=== PATIENT | male | born 1945 | race Caucasian/White ===

== ENCOUNTER 2019-09-04 00:46 | Inpatient (IN) | payer MEDICARE, OTHER, SELFPAY ==
[2019-09-04] VITALS (14 sets, daily range): BP systolic 121–167; BP diastolic 57–78; PULSE 55–82; RESP 14–18; TEMP 36.4–36.8; O2SAT 95–97; BMI 29.2; BMI 29.3
--- NOTE | 2019-09-04 00:51 | PCM.HP.STD ---
Problem List (1) Pneumothorax, left Status: Acute (2) Rib fractures Status: Acute (3) Seizure disorder Status: Chronic (4) Hypertension Status: Chronic (5) Type 2 diabetes mellitus Status: Chronic (6) History of benign brain tumor Status: Chronic (7) Coronary artery disease Status: Chronic (8) Status post coronary artery bypass graft Status: Chronic History of Present Illness Date of Admission: 09/04/19 Chief Complaint: Directly admitted from outside facility for left rib fractures and left pneumothorax. The patient is a 74 year old M with past medical history as mentioned above directly admitted from [facility] for rib fractures and left pneumothorax. The patient is hard of hearing but he was able to provide history. He stated that he was going out of his house down on the steps, he missed the outer door screen and fell on his left side. He started having sharp left-sided chest pain, sharp pain, 10 out of 10 in severity, aggravated by taking deep breath or any movement and associated with mild shortness of breath. He denied cough or sputum production. Denied fever or chills. He denied dizziness, lightheadedness, syncope or presyncope before he fell. At this time, he is afebrile, blood pressure slight elevated, other vital signs are stable. His routine blood work that was done at the outside facility was remarkable for BUN of 28 and creatinine of 1.4. Chest x-ray revealed left eighth, ninth, 10th rib fractures with mild to moderate left pneumothorax. He is being admitted for acute traumatic left eighth, ninth and 10th rib fractures and mild to moderate left pneumothorax. Past Medical History Past Medical History (Chronic Problems): Chronic Problems Seizure disorder (Chronic) Hypertension (Chronic) Type 2 diabetes mellitus (Chronic) History of benign brain tumor (Chronic) Coronary artery disease (Chronic) Status post coronary artery bypass graft (Chronic) Allergies bee venom protein (honey bee) Allergy (Verified 09/04/19 00:28) Swelling cat dander Allergy (Verified 09/04/19 00:28) PT UNSURE OF REACTION strawberry Allergy (Verified 09/04/19 00:28) Hives Home Medications: Ambulatory Orders Medication Instructions Recorded Dilantin 09/04/19 Hctz 09/04/19 Metformin HCl 09/04/19 Vitamin B-12 09/04/19 Surgical History: coronary bypass surgery, - - Resection of benign brain tumor. Psychiatric History: No pertinent psych hx Lives: Spouse/ Significant Other Smoking Status: Former smoker Tobacco Use: Non-smoker Alcohol: None Drugs: None - *Family History Maternal History Items: No pertinent history Paternal History Items: No pertinent history Review of Systems Constitutional: Denies: Anorexia, Chills, Fever, Weakness Eyes: Denies: Blurred vision, Double vision, Drainage, Redness HEENT: Denies: Difficulty Hearing, Ear Pain, Eye Pain, Nasal Congestion, Sore Throat Cardiovascular: Reports: Chest Pain. Denies: Chest Pressure, Chest Tightness, Edema, Heaviness, Palpitations, Paroxysmal Noc. Dyspnea, Syncope Respiratory: Reports: Shortness of Breath. Denies: Cough, Hemoptysis, Pleuritic Pain, Sputum production, Wheezing Gastrointestinal: Denies: Abdominal Pain, Constipation, Diarrhea, Nausea, Vomiting Genitourinary: Denies: Dysuria, Frequency, Hematuria Musculoskeletal: Denies: Arm Pain, Back Pain, Foot Pain Skin: Denies: Dryness, Rash Neurological: Denies: Balance problems, Blurred vision, Change in Speech, Slurred speech, Confusion, Headaches, Incoordination Psychiatric: Denies: Anxiety, Depression Endocrine: Denies: Change in Body Habitus, Polydipsia, Polyuria VTE Information - Inpt Only VTE Present on Admission: No VTE Mechan Device Prophylaxis: SCD's VTE Pharm Prophylaxis ordered?: No Patient Problems: Active and Suspected Problems Pneumothorax, left (Acute) Rib fractures (Acute) - Physical Exam Vitals/I&O's: Vital Signs Temp Pulse Resp BP Pulse Ox 97.6 F L 61 18 167/72 H 96 09/04/19 00:15 09/04/19 00:15 09/04/19 00:15 09/04/19 00:15 09/04/19 00:15 Oxygen Delivery Method Room Air Weight: 175 lb 14.862 oz Body Mass Index (BMI) 29.2 General: Alert, Oriented x3, Cooperative HEENT: Atraumatic, PERRLA, EOMI, Normocephalic Oral: Moist Mucosa, No Gingival or Mucosal Lesions/ Ulcerations Neck: Supple, No JVD, Negative Carotid Bruits, Trachea Midline, Thyroid Normal Size and Texture Lungs: Clear to auscultation, Normal air movement, No rhonchi, No wheeze, No rales, Diminished Cardiovascular: Regular rate, Regular Rhythm, Normal S1, Normal S2, PMI Normal Abdomen: Bowel Sounds Present, Soft, Non Tender, Non-Distended, No Hepato-splenomegaly Extremities: No clubbing, No cyanosis, No edema Skin: No rashes, No breakdown Lymphatic: No Cervical, Supraclavicular, or Inguinal Adenopathy Neurological: Cranial nerves II-XII grossly intact, Motor Exam 5/5 strength throughout Psych/Mental Status: Normal Affect, Appropriate, Alert and oriented to time, place, person, mood and affect CBC: WBC is 11.3, hemoglobin 13.4, platelet count 266,000. BMP: Glucose 99, sodium 138, potassium 4.7, chloride 102, BUN 28, creatinine is 1.4. Chest x-ray reviewed, left eighth, ninth and 10th rib fractures and to me, pneumothorax is not obvious. Clinical Impression(s) from Imaging Studies Chest X-Ray 09/04/19 01:05 IMPRESSION: Small left pneumothorax. Mild bilateral basilar atelectasis. No visualized pulmonary infiltrate. Electronically Signed: Ap Moscoso MD at 2:15 EDT , Service support , ADDENDUM: 09/04/19225 IMPRESSION: Small left pneumothorax. Mild bilateral basilar atelectasis. No visualized pulmonary infiltrate. N.B. : The above information has been verbally conveyed by Ap Moscoso MD to Ashley Otero RN, on 09/04/2019 02:19:02 (ET). Electronically Signed: Ap Moscoso MD at 2:15 EDT , Service support , Current Medications Sodium Chloride () 250 mls @ 15 mls/hr IV .[id number] PRN PRN Reason: Saline Flush Sodium Chloride () 250 mls @ 15 mls/hr IV .[id number] PRN PRN Reason: Additional IVPB Infusion Sodium Chloride () 10 - 40 ml IV UD PRN PRN Reason: SALINE FLUSH Assessment/Plan All Active Problems Pneumothorax, left (Acute) Rib fractures (Acute) This is a 74 years old male patient was directly admitted from outside facility for acute traumatic left eighth, ninth and 10th rib fractures with mild to moderate pneumothorax. #1 left [id number] pneumothorax: Repeat chest x-ray done and revealed 20% left pneumothorax. Patient's vital signs and respiratory status stable. Pulse ox is maintained on room air. EKG revealed normal sinus rhythm, no acute skin changes. Admit to PCU, cardiac monitoring, gentle IV fluids for hydration, IV morphine PRN for pain, OxyIR PRN, CBC and BMP this morning, general surgery consult, Tylenol PRN, PT OT evaluation and treatment. #2 acute traumatic left eighth, ninth and 10th rib fractures: Plan as above, pain control, IV morphine PRN, OxyIR PRN, Lidoderm patch topically, incentive spirometer. #3 CAD status post CABG: Stable, no acute issues. EKG reviewed, was unremarkable. Plan to continue home medications when home medication list updated. #4 renal sufficiency: It is unclear if this is acute or chronic. Admission BUN is 28, creatinine 1.4. Plan: Gentle IV fluids for hydration, input output chart, repeat BMP this morning. #5 type 2 diabetes mellitus: ADA diet, Accu-Cheks, insulin sliding scale. Continue metformin. #6 hypertension: Blood pressure slightly elevated, continue home medications when home medication list updated, IV hydralazine PRN. #7 seizure disorder: Continue with Dilantin when home medication list updated. #8 history of benign brain tumor: Status post resection, stable. #9 DVT prophylaxis: SCDs. No chemical prophylaxis. This note was generated with [employer] dictation software. It may contain incorrect words, spelling, and punctuation that were not noted in checking the note before signing. Inpatient E&M: 83516 Init Hosp L3
--- NOTE | 2019-09-04 00:53 | NURSING ---
Pt reports he hasn't had a PNA shot. States last flu shot was about a year ago.
--- NOTE | 2019-09-04 00:55 | EKG12_ITS ---
Test Reason : NEW PT ADMIT Blood Pressure : / mmHG Vent. Rate : 060 BPM Atrial Rate : 060 BPM P-R Int : 128 ms QRS Dur : 116 ms QT Int : 452 ms P-R-T Axes : -26 -75 074 degrees QTc Int : 452 ms Normal sinus rhythm Left axis deviation Nonspecific ST and T wave abnormality Abnormal ECG No previous ECGs available Confirmed by HOLLEY MIKE, CALEB ([id number]), video effects editor TABBY OLSON ([id number]) on 09/05/2019 1:58:06 PM Referred By: DR HODGES Confirmed By:CALEB BABB MD
--- NOTE | 2019-09-04 01:05 | RAD_ITS ---
We are attempting to reach an attending provider to discuss findings. An addendum with communication details will be sent when the communication is complete. STUDY: X-RAY CHEST REASON FOR EXAM: Male, 74 years old. Fall today. Left rib fractures. questionable pneumothorax. TECHNIQUE: Frontal and lateral views of the chest. COMPARISON: None. FINDINGS: There is a small left pneumothorax, probably filling about 20% of the left hemithorax. There is up to 2.5 cm separation of visceral and parietal pleura in the left apical region. There is mild bilateral basilar atelectasis. There is no demonstrated pulmonary infiltrate. There is no demonstrated pleural effusion.. Normal size heart. There are sternotomy wires. Normal mediastinum and neal. Normal visualized pulmonary arteries. There is atherosclerotic calcification of the aortic arch with tortuosity. There are multilevel degenerative changes of thoracic spine.. There is no visualized rib fracture on the views provided.. There is an irregular but well circumscribed sclerotic density in the left humeral neck which may represent an old bone infarction or benign enchondroma.. There is no demonstrated abnormality of the visualized soft tissue structures of the upper abdomen. RAD/Chest PA and Lateral IMPRESSION: Small left pneumothorax. Mild bilateral basilar atelectasis. No visualized pulmonary infiltrate. Electronically Signed: Ap Moscoso MD at 2:15 EDT , Service support ,
[2019-09-04] MEDS: 0.9% Normal Saline 1,000 ML 75 ML IV (01:42)
[2019-09-04] MEDS: 0.9% Saline Lock 10 ML Syringe IV (01:42)
--- NOTE | 2019-09-04 04:50 | NURSING ---
Addendum entered by Ashley Otero 09/04/19 06:36: Pt denies thoughts of suicide. Original Note: This RN communicated to pt that the plan is for a chest tube. Pt states, I feel like I just want to give up.
[2019-09-04] MEDS: oxyCODONE 5 MG Tablet PO (04:56)
--- NOTE | 2019-09-04 04:58 | NURSING ---
Pt would like his sister Valeria and his girlfriend Darcy updated with plan for pt this AM. Valeria Gerber [phone]. Darcy Santo [phone].
--- NOTE | 2019-09-04 05:07 | EKG12_ITS ---
Test Reason : CP Blood Pressure : / mmHG Vent. Rate : 052 BPM Atrial Rate : 052 BPM P-R Int : 126 ms QRS Dur : 118 ms QT Int : 444 ms P-R-T Axes : -28 -76 023 degrees QTc Int : 412 ms Sinus bradycardia with sinus arrhythmia Left axis deviation ST & T wave abnormality, consider anterior ischemia Abnormal ECG When compared with ECG of 04-SEP-2019 02:00, MANUAL COMPARISON REQUIRED, DATA IS UNCONFIRMED Confirmed by HOLLEY MIKE, CALEB ([id number]), research editor TABBY OLSON ([id number]) on 09/05/2019 1:48:51 PM Referred By: DR HODGES Confirmed By:CALEB BABB MD
[2019-09-04 06:08] LABS: Absolute Lymphocyte Count 2.09 X10^3/uL (0.83-4.51); Absolute Neutrophil Count 4.1 X10^3/uL (2.0-7.7); Basophil# 0.05 X10^3/uL; Basophil% 0.7 % (0-1); Eosinophil# 0.34 X10^3/uL; Eosinophils% 4.7 % (0-5); Hematocrit 39.9 % (40-54); Hemoglobin 12.8 g/dL (13.0-16.5); Lymphocyte # 2.09 X10^3/ul (4.0); Lymphocyte % 28.9 % (19-41); Mean Corp Hgb Conc 32.1 g/dL (32-36); Mean Corpuscular Hgb 30.8 pg (27.0-32.0); Mean Corpuscular Volume 96.1 fL (80-94); Monocyte# 0.66 X10^3/uL; Monocyte% 9.1 % (0-10); NRBC Flagged by Analyzer 0 % (0-5); Neutrophil # 4.07 X10^3/uL (2.7-7.7); Neutrophil % 56.2 % (47-70); Platelet Count 239 K/mm3 (150-450); RBC Distribution Width SD 45.9 fl (35.1-43.9); Red Blood Count 4.15 M/mm3 (4.6-6.2); White Blood Count 7.2 K/mm3 (4.4-11.0)
[2019-09-04 06:25] LABS: Prothrombin Time (Protime)PT. 12.7 SECONDS (11.7-14.9)
[2019-09-04 06:29] LABS: Anion Gap 5 (5-15); BUN 22 mg/dL (7-18); BUN/Creat Ratio 19.3 RATIO (10-20); Calcium,Total 9.2 mg/dL (8.5-10.1); Chloride 108 mmol/L (98-107); Creatinine, Serum 1.14 mg/dL (0.70-1.30); EST Glomerular Filtration Rate 67 mL/min (>60); Est Glom Filt Rate - Afr Amer 81 mL/min (>60); Estimated Creatinine Clearance 50.95 ml/min; Glucose 122 mg/dL (74-106); Potassium 4.6 mmol/L (3.5-5.1); Sodium Level 140 mmol/L (136-145)
--- NOTE | 2019-09-04 07:18 | RAD_ITS ---
STUDY: X-RAY CHEST REASON FOR EXAM: Male, 74 years old. pneumothorax -- fell yesterday with left sided rib fractures and small left pneumothorax seen on previous CXR TECHNIQUE: PA and lateral views of the chest. COMPARISON: Yesterday FINDINGS: EKG leads project over the chest. Decreased amount of atelectasis in the left lung base. Left apical pneumothorax has slightly decreased measuring approximately 15% in volume with pleural separation measuring approximately 2.1 cm at the left apex. Tiny amount of lucency in the left costophrenic angle is likely related to pneumothorax, stable. Normal size heart. Sternal wires and mediastinal surgical clips compatible with prior CABG. Normal visualized pulmonary arteries. There is atherosclerotic calcification of the aortic arch with tortuosity. There are diffuse degenerative changes of the visualized thoracic spine. Oval-shaped chondroid lesion of the left humeral neck compatible with benign entities such as enchondroma or bone infarct. There is no demonstrated abnormality of the visualized soft tissue structures of the upper abdomen. RAD/Chest PA and Lateral IMPRESSION: 1. Favorable change. Persistent but decreased left pneumothorax. Electronically Signed: Nimesh Knott MD ([place]) at 8:08 EDT , Service support ,
--- NOTE | 2019-09-04 08:39 | PN_ITS ---
Progress Note Patient is a 74-year-old gentleman transferred from [facility] after presenting with an accidental mechanical fall. Chest x-ray obtained demonstrated multiple rib fractures and a 20% pneumothorax. To monitored bed repeat chest x-ray this a.m. demonstrated reduction in his pneumothorax down to 15% 1. Acute mechanical fall with resultant left-sided pneumothorax and multiple rib fractures 2. Coronary artery disease status post CABG 3. Acute kidney injury 4. Diabetes mellitus type 2 5. Essential hypertension 6. Seizure disorder 7. History of brain tumor status post resection Seen and examined his initial assessment including history and physical, diagnostic data, consultation note and management orders reviewed will follow. STROKE Vital Signs/Narrative: Vital Signs Temp Pulse Resp BP Pulse Ox 09/04/19 04:51 97.9 F 57 L 18 152/57 H 97
[2019-09-04] MEDS: Glucerna Shake 120 ML LIQUID PO ×2 (08:48→17:09)
[2019-09-04] MEDS: Lidocaine 5% Patch 1 PATCH TOPICAL (08:49)
--- NOTE | 2019-09-04 09:07 | CON.PCM_ITS ---
Reason for Consult Date of Consultation: 09/04/19 History of Present Illness: The patient is a 74 year old M presented to the ER due to left-sided chest pain after a fall. Patient states he fell from his trailer as he was hanging onto the screen door but the wind came up and took the door and he fell back on the concrete. Patient denies any loss of consciousness or hitting his head, denies any abdominal pain just complains of some left-sided chest pain. Patient went to [facility] reviews showed multiple rib fractures. Additional chest x-ray here showed maybe a 20% pneumothorax patient has been on room air 97% and denies any shortness of breath. Repeat chest x-ray was done this morning which shows improvement of the pneumothorax may be about 15%. Patient would prefer to avoid a chest tube if possible. Past Medical History Past Medical History (Chronic Problems): Chronic Problems Seizure disorder (Chronic) Hypertension (Chronic) Type 2 diabetes mellitus (Chronic) History of benign brain tumor (Chronic) Coronary artery disease (Chronic) Status post coronary artery bypass graft (Chronic) Allergies bee venom protein (honey bee) Allergy (Verified 09/04/19 00:28) Swelling cat dander Allergy (Verified 09/04/19 00:28) PT UNSURE OF REACTION strawberry Allergy (Verified 09/04/19 00:28) Hives Home Medications: Ambulatory Orders Medication Instructions Recorded Dilantin 09/04/19 Hctz 09/04/19 Metformin HCl 09/04/19 Vitamin B-12 09/04/19 Surgical History: coronary bypass surgery, - - Resection of benign brain tumor., Bilateral inguinal hernia repairs with mesh, right finger amputation during the war in [place] Psychiatric History: No pertinent psych hx Lives: Spouse/ Significant Other Smoking Status: Former smoker Tobacco Use: Non-smoker Alcohol: None Drugs: None - *Family History Maternal History Items: No pertinent history Paternal History Items: No pertinent history Review of Systems Constitutional: Denies: Anorexia Eyes: Reports: - - Patient states 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 Denies: Difficulty Swallowing Cardiovascular: Reports: - - Left-sided rib pain Respiratory: Denies: Shortness of Breath Gastrointestinal: Denies: Abdominal Pain, Nausea, Vomiting Genitourinary: Denies: Dysuria Psychiatric: Denies: Anxiety, Depression Hematologic/ Lymphatic: Denies: Easy Bruising, Easy Bleeding Patient Problems: Active and Suspected Problems Pneumothorax, left (Acute) Rib fractures (Acute) - Physical Exam Vitals/I&O's: Vital Signs Temp Pulse Resp BP Pulse Ox 97.9 F 57 L 18 152/57 H 97 09/04/19 04:51 09/04/19 04:51 09/04/19 04:51 09/04/19 04:51 09/04/19 04:51 Oxygen Delivery Method Room Air Weight: 175 lb 14.862 oz Body Mass Index (BMI) 29.2 Intake and Output for Last 24 Hours 09/02/19 09/03/19 09/04/19 23:59 23:59 23:59 Intake Total 160 / 160 Output Total 1075 / 1075 Balance -915 / -915 General: Alert, Oriented x3, Cooperative, No apparent distress HEENT: Atraumatic Lungs: Clear to auscultation, - - Tender to palpation on the left lateral chest, nontender over sternum, no crepitus on exam Cardiovascular: Regular rate Abdomen: Soft, Non Tender, Non-Distended Extremities: No clubbing, No cyanosis, No edema Neurological: Cranial nerves II-XII grossly intact Psych/Mental Status: Normal Affect Laboratory Results 09/04/19 05:52: WBC 7.2, RBC 4.15 L, Hgb 12.8 L, Hct 39.9 L, MCV 96.1 H, MCH 30.8, MCHC 32.1, RDW Std Deviation 45.9 H, RDW Coeff of [place] 13.0, Plt Count 239, MPV 9.0, Immature Gran % (Auto) 0.400, Neut % (Auto) 56.2, Lymph % (Auto) 28.9, [place] % (Auto) 9.1, Eos % (Auto) 4.7, Baso % (Auto) 0.7, Absolute Neuts (auto) 4.1, Absolute Lymphs (auto) 2.09, Nucleated RBC % 0 09/04/19 05:52: PT 12.7, INR 1.0 09/04/19 05:52: Sodium 140, Potassium 4.6, Chloride 108 H, Carbon Dioxide 27.0, Anion Gap 5, BUN 22 H, Creatinine 1.14, Estim Creat Clear Calc 50.95, Est GFR (MDRD) Af Amer 81, Est GFR (MDRD) Non-Af 67, BUN/Creatinine Ratio 19.3, Glucose 122 H, Calcium 9.2 09/04/19 05:52: Troponin I < 0.015 Current Medications Acetaminophen (Tylenol) 650 mg PO Q6H PRN PRN PRN Reason: Pain Score 1-10/Temp > 100.7 F Dextrose (D50w Syringe) 0 gm IV X1 PRN; Protocol PRN Reason: Hypoglycemia Glucagon () 1 mg IM .X1 PRN PRN Reason: Hypoglycemia Hydralazine HCl (Apresoline Iv) 10 mg IV Q8H PRN PRN PRN Reason: for SBP>160 Sodium Chloride () 250 mls @ 15 mls/hr IV .[id number] PRN PRN Reason: Saline Flush Sodium Chloride () 250 mls @ 15 mls/hr IV .[id number] PRN PRN Reason: Additional IVPB Infusion Sodium Chloride () 1,000 mls @ 75 mls/hr IV .[id number] [facility] Stop: 09/04/19 14:14 Last Admin: 09/04/19 01:42 Dose: 75 mls/hr Documented by: Lidocaine (Lidoderm Patch) 1 patch TOPICAL DAILY [facility]; Protocol Last Admin: 09/04/19 08:49 Dose: 1 patch Documented by: Morphine Sulfate () 2 mg IV Q3H PRN PRN PRN Reason: Pain Score 6-10/10 Nutritional Formula (Lactose Free) (Glucerna Shake) 120 ml PO TIDCM [facility] Last Admin: 09/04/19 08:48 Dose: 120 ml Documented by: Ondansetron HCl (Zofran) 4 mg IV Q8H PRN PRN PRN Reason: NAUSEA/VOMITING Oxycodone HCl (Oxyir) 5 mg PO Q4H PRN PRN PRN Reason: Pain Score 4-5/10 Last Admin: 09/04/19 04:56 Dose: 5 mg Documented by: Senna/Docusate Sodium (Senokot-S, Joslyn-Colace) 2 tablet PO BID PRN PRN PRN Reason: Constipation Sodium Chloride () 10 - 40 ml IV UD PRN PRN Reason: SALINE FLUSH Last Admin: 09/04/19 01:42 Dose: 10 ml Documented by: Zolpidem Tartrate (Ambien (Generic)) 5 mg PO QHS PRN PRN PRN Reason: INSOMNIA Assessment/Plan All Active Problems Pneumothorax, left (Acute) Rib fractures (Acute) 74-year-old male status post fall, multiple left rib fractures, small pneumothorax on the left 1. Patient's chest x-ray this morning does show decrease in size of the pneumothorax about 15% patient has been on room air denying any shortness of breath while he has been in the hospital at 97%. Plan to continue to monitor closely patient is aware that if he has any breathing difficulties or his chest x-ray shows increasing pneumothorax with plan to place a chest tube at bedside. Patient would like to avoid a chest tube if possible. We will continue to monitor. Margret Morales M.D. Pager: [phone] [facility] [address] [place] [address], [facility], [address] [place] [address] Office: [phone] Inpatient E&M: 11868 Init Hosp L2
--- NOTE | 2019-09-04 11:17 | NURSING ---
1115 ATTEMPTED TO CALL [facility] PHONE NUMBER LISTED IN CHART IS OUT OF SERVICE
[2019-09-04 11:35] LABS: Bedside Glucose 109 mg/dL (70-110)
[2019-09-04 11:51] LABS: Bedside Glucose 114 mg/dL (70-110)
--- NOTE | 2019-09-04 12:49 | CASEMGMT ---
FABIO SOLANO assessment: Face to Face with patient for initial transition planning/care coordination assessment. FABIO SOLANO introduced self and role at [facility], pt voices understanding and consents to assessment at this time. Pt is hard of hearing. Pt is A/Ox4 at this time and answers all questions appropriately at this time. Pt is sitting up in chair in no distress at this time. Care providers, pharmacy, and demographics verified/updated at this time. Presentation: Direct admit from [facility] for multiple rib fx's and small pneumo s/p fall Admitting dx: // rib fx's left PCP: [facility] Specialists: [facility] in [place] Preferred Pharmacy: [place] Insurance: [facility] Pres[facility] Benefit: [facility] Living Will/HPOA: Pt states does not have LW/HPOA and declines AD info at this time. Pt states that he is working on this on his own. LNOK: Darcy Santo, girlfriend Living Arrangements: Pt states lives alone in mobile home and states no concerns at home at this time. Pt states his sig other lives 'three trailers down and she helps me with whatever I need.' Pt states is mostly independent with ADL's. Transportation: Pt states drives self and states no transportation concerns at this time. DME/HHC: Pt states [facility] and states no need for any further DME at this time. Pt states no hx of HHC or SNF in the past. Pt states no concerns with going home at time of discharge. Pt is retired. Pt states does not smoke or drink ETOH. Pt states no further concerns/needs at this time. CM to follow for any further discharge planning/needs. Advised pt to ask for CM if any further questions/concerns/needs arise, voices understanding. Pt Goal: Home Plan[place] FABIO SOLANO
[2019-09-04] MEDS: Cilostazol 50 MG Tablet 100 MG PO (17:10)
[2019-09-04] MEDS: metFORMIN HCl 1,000 MG Tablet 1000 MG PO (17:10)
[2019-09-04] MEDS: Phenytoin Na 100 MG Capsule PO (17:11)
[2019-09-04 17:25] LABS: Bedside Glucose 89 mg/dL (70-110)
[2019-09-04] MEDS: Atorvastatin Calcium 20 MG Tablet PO (21:18)
[2019-09-04] MEDS: Doxazosin 4 MG Tablet PO (21:18)
[2019-09-04] MEDS: Lisinopril 40 MG Tablet PO (21:18)
[2019-09-04] MEDS: Zolpidem Tartrate 5 MG Tablet PO (21:21)
[2019-09-04 21:30] LABS: Bedside Glucose 90 mg/dL (70-110)
[2019-09-05 02:06] VITALS: BP 157/73; PULSE 82; RESP 18; TEMP 36.5; O2SAT 94
[2019-09-05 03:17] VITALS: PULSE 67
--- NOTE | 2019-09-05 05:55 | RAD_ITS ---
STUDY: X-RAY CHEST REASON FOR EXAM: Male, 74 years old. PNEUMOTHORAX, RIB FXS TECHNIQUE: PA and lateral views of the chest. COMPARISON: Comparison is made with prior study dated September 04, 2019. FINDINGS: EKG electrodes are seen. Stable small left apical pneumothorax. Mild degree of bibasilar atelectasis slightly more prominent on the right side. This has progressed as compared to prior study. Sternal cerclage wires and vascular clips are present from a prior sternotomy and coronary artery bypass graft procedure (CABG). Normal mediastinum and neal. Normal visualized pulmonary arteries. There is atherosclerotic calcification of the aortic arch with tortuosity. There are degenerative changes of the visualized thoracic spine. Normal visualized ribs, clavicles, and shoulders. There is no demonstrated abnormality of the visualized soft tissue structures of the upper abdomen. RAD/Chest PA and Lateral IMPRESSION: Stable small left apical pneumothorax with a mild degree of bibasilar atelectasis. Electronically Signed: Saleem Richards, at 10:25 EDT , Service support ,
[2019-09-05] MEDS: Cilostazol 50 MG Tablet 100 MG PO (06:40)
[2019-09-05 06:50] LABS: Bedside Glucose 137 mg/dL (70-110)
[2019-09-05 07:36] VITALS: PULSE 87
[2019-09-05 07:45] VITALS: O2SAT 95
[2019-09-05 07:57] LABS: Hematocrit 40.6 % (40-54); Hemoglobin 13.3 g/dL (13.0-16.5); Mean Corp Hgb Conc 32.8 g/dL (32-36); Mean Corpuscular Volume 94.6 fL (80-94); Mean Platelet Vol. 8.9 fl (6.2-12.0); Platelet Count 242 K/mm3 (150-450); RBC Distribution Width CV 13.1 % (11.6-14.6); RBC Distribution Width SD 44.8 fl (35.1-43.9); Red Blood Count 4.29 M/mm3 (4.6-6.2); White Blood Count 6.1 K/mm3 (4.4-11.0)
[2019-09-05] MEDS: oxyCODONE 5 MG Tablet PO (08:04)
[2019-09-05 08:05] VITALS: BP 150/64; PULSE 88; RESP 16; TEMP 36.7; O2SAT 98
[2019-09-05] MEDS: Aspirin 325 MG Tablet PO (08:05)
[2019-09-05 08:06] LABS: Anion Gap 10 (5-15); BUN 21 mg/dL (7-18); BUN/Creat Ratio 19.8 RATIO (10-20); Calcium,Total 9.3 mg/dL (8.5-10.1); Chloride 104 mmol/L (98-107); Creatinine, Serum 1.06 mg/dL (0.70-1.30); EST Glomerular Filtration Rate 73 mL/min (>60); Est Glom Filt Rate - Afr Amer 88 mL/min (>60); Glucose 141 mg/dL (74-106); Magnesium 1.8 mg/dL (1.6-2.6); Potassium 3.9 mmol/L (3.5-5.1); Sodium Level 140 mmol/L (136-145)
[2019-09-05] MEDS: Cyanocobalamin 500 MCG Tablet 1000 MCG PO (08:06)
[2019-09-05] MEDS: metFORMIN HCl 1,000 MG Tablet 1000 MG PO (08:06)
[2019-09-05] MEDS: Phenytoin Na 100 MG Capsule PO (08:06)
[2019-09-05] MEDS: hydroCHLOROthiazide 25 MG Tablet 50 MG PO (08:07)
[2019-09-05] MEDS: Doxazosin 4 MG Tablet PO (08:07)
[2019-09-05] MEDS: Atenolol 100 MG Tablet PO (08:07)
[2019-09-05] MEDS: Lidocaine 5% Patch 1 PATCH TOPICAL (08:08)
[2019-09-05] MEDS: Lisinopril 40 MG Tablet PO (08:08)
--- NOTE | 2019-09-05 11:42 | PN.SURG_ITS ---
Patient Problems: Active and Suspected Problems Pneumothorax, left (Acute) Rib fractures (Acute) Subjective: Patient denies any shortness of breath, and 94% on room air, chest x-ray shows stable left apical pneumothorax could be may be a little improved difficult to see behind the rib. - Physical Exam Vitals/I&O's: Vital Signs Temp Pulse Resp BP Pulse Ox 98.0 F 88 16 150/64 H 98 09/05/19 08:05 09/05/19 08:05 09/05/19 08:05 09/05/19 08:05 09/05/19 08:05 Oxygen Delivery Method Room Air Weight: 175 lb 14.862 oz Body Mass Index (BMI) 29.2 Intake and Output for Last 24 Hours 09/03/19 09/04/19 09/05/19 23:59 23:59 23:59 Intake Total 1840 / 1840 Output Total 2099 / 2099 Balance -260 / -260 General: Alert, Oriented x3, Cooperative, No apparent distress HEENT: Atraumatic Lungs: Clear to auscultation Cardiovascular: Regular rate Abdomen: Soft, Non Tender, Non-Distended, - - Tender left lower chest Extremities: No clubbing, No cyanosis, No edema Laboratory Results 09/04/19 11:47: POC Glucose 114 H 09/04/19 17:08: POC Glucose 89 09/04/19 21:24: POC Glucose 90 09/05/19 06:44: POC Glucose 137 H 09/05/19 07:45: WBC 6.1, RBC 4.29 L, Hgb 13.3, Hct 40.6, MCV 94.6 H, MCH 31.0, MCHC 32.8, RDW Std Deviation 44.8 H, RDW Coeff of Rosa Maria 13.1, Plt Count 242, MPV 8.9 09/05/19 07:45: Sodium 140, Potassium 3.9, Chloride 104, Carbon Dioxide 26.0, A nion Gap 10, BUN 21 H, Creatinine 1.06, Estim Creat Clear Calc 54.80, Est GFR (MDRD) Af Amer 88, Est GFR (MDRD) Non-Af 73, BUN/Creatinine Ratio 19.8, Glucose 141 H, Calcium 9.3, Magnesium 1.8 Current Medications Acetaminophen (Tylenol) 650 mg PO Q6H PRN PRN PRN Reason: Pain Score 1-10/Temp > 100.7 F Aspirin (Aspirin) 325 mg PO DAILY@0800 [facility] Last Admin: 09/05/19 08:05 Dose: 325 mg Documented by: Atenolol (Tenormin (Beta Gómez)) 100 mg PO DAILY [facility] Last Admin: 09/05/19 08:07 Dose: 100 mg Documented by: Atorvastatin Calcium (Lipitor) 20 mg PO QHS [facility] Last Admin: 09/04/19 21:18 Dose: 20 mg Documented by: Cilostazol (Pletal) 100 mg PO BIDAC [facility] Last Admin: 09/05/19 06:40 Dose: 100 mg Documented by: Cyanocobalamin (Vitamin B12) 1,000 mcg PO DAILYCM [facility] Last Admin: 09/05/19 08:06 Dose: 1,000 mcg Documented by: Dextrose (D50w Syringe) 0 gm IV X1 PRN; Protocol PRN Reason: Hypoglycemia Doxazosin Mesylate (Cardura) 4 mg PO BID [facility] Last Admin: 09/05/19 08:07 Dose: 4 mg Documented by: Glucagon () 1 mg IM .X1 PRN PRN Reason: Hypoglycemia Hydralazine HCl (Apresoline Iv) 10 mg IV Q8H PRN PRN PRN Reason: for SBP>160 Hydrochlorothiazide (Hctz) 50 mg PO DAILY [facility] Last Admin: 09/05/19 08:07 Dose: 50 mg Documented by: Sodium Chloride () 250 mls @ 15 mls/hr IV .[id number] PRN PRN Reason: Saline Flush Sodium Chloride () 250 mls @ 15 mls/hr IV .[id number] PRN PRN Reason: Additional IVPB Infusion Lidocaine (Lidoderm Patch) 1 patch TOPICAL DAILY [facility]; Protocol Last Admin: 09/05/19 08:08 Dose: 1 patch Documented by: Lisinopril (Zestril) 40 mg PO BID [facility] Last Admin: 09/05/19 08:08 Dose: 40 mg Documented by: Metformin HCl (Glucophage) 1,000 mg PO BIDCM [facility] Last Admin: 09/05/19 08:06 Dose: 1,000 mg Documented by: Morphine Sulfate () 2 mg IV Q3H PRN PRN PRN Reason: Pain Score 6-10/10 Naproxen (Naprosyn) 500 mg PO BID PRN PRN Reason: Pain Score 1-10/10 Nutritional Formula (Lactose Free) (Glucerna Shake) 120 ml PO TIDCM [facility] Last Admin: 09/05/19 08:05 Dose: Not Given Documented by: Ondansetron HCl (Zofran) 4 mg IV Q8H PRN PRN PRN Reason: NAUSEA/VOMITING Oxycodone HCl (Oxyir) 5 mg PO Q4H PRN PRN PRN Reason: Pain Score 4-5/10 Last Admin: 09/05/19 08:04 Dose: 5 mg Documented by: Phenytoin Sodium (Dilantin) 100 mg PO BIDCM [facility] Last Admin: 09/05/19 08:06 Dose: 100 mg Documented by: Senna/Docusate Sodium (Senokot-S, Joslyn-Colace) 2 tablet PO BID PRN PRN PRN Reason: Constipation Sodium Chloride () 10 - 40 ml IV UD PRN PRN Reason: SALINE FLUSH Last Admin: 09/04/19 01:42 Dose: 10 ml Documented by: Zolpidem Tartrate (Ambien (Generic)) 5 mg PO QHS PRN PRN PRN Reason: INSOMNIA Last Admin: 09/04/19 21:21 Dose: 5 mg Documented by: Medical Necessity - Tobacco Use Smoking Status: Former smoker Tobacco Use: Non-smoker Assessment/Plan All Active Problems Pneumothorax, left (Acute) Rib fractures (Acute) 74-year-old male status post fall, multiple left rib fractures, small pneumothorax on the left 1. Patient's chest x-ray is stable, okay to DC today we will have patient return for a follow-up chest x-ray tomorrow before 11 AM patient is also instructed that if any shortness of breath to return to the ER. Patient is agreeable with plan. Margret Morales M.D. Pager: [phone] [facility] [address] [place] [address], Outpatient [place], [address] [address] Office: [phone] Margret Morales M.D. Pager: [phone] [facility] [address] [place] [address], Outpatient [place], [place] [address] Office: [phone] Inpatient E&M: 33824 Subs Hosp L1
--- NOTE | 2019-09-05 11:54 | PCM.DC ---
- Discharge Diagnoses Current Active Problems: Current Active and Chronic Problems Pneumothorax, left (Acute) Rib fractures (Acute) Seizure disorder (Chronic) Hypertension (Chronic) Type 2 diabetes mellitus (Chronic) History of benign brain tumor (Chronic) Coronary artery disease (Chronic) Status post coronary artery bypass graft (Chronic) You will use the following diet at home:: Cardiac Discharge Activity: Return to Normal Activity Allergies/Adverse Reactions: Allergies bee venom protein (honey bee) Allergy (Verified 09/04/19 00:28) Swelling cat dander Allergy (Verified 09/04/19 00:28) PT UNSURE OF REACTION strawberry Allergy (Verified 09/04/19 00:28) Hives Medications to take at Discharge Acetaminophen 650 mg PO Q4H PRN 09/04/19 Aspirin 325 mg PO DAILY@0800 09/04/19 Atenolol [Tenormin (beta kaia)] 100 mg PO DAILY 09/04/19 Atorvastatin Calcium 20 mg PO QHS 09/04/19 Cilostazol 100 mg PO BID 09/04/19 Cyanocobalamin (Vitamin B-12) [Vitamin B-12] 1,000 mcg PO DAILY 09/04/19 Hydrochlorothiazide 50 mg PO DAILY 09/04/19 Lisinopril 40 mg PO BID 09/04/19 Metformin HCl 1,000 mg PO BIDCM 09/04/19 Naproxen 500 mg PO BID PRN 09/04/19 Phenytoin Na [Dilantin] 100 mg PO BID 09/04/19 Terazosin HCl 5 mg PO BID 09/04/19 Lidocaine [Lidoderm Patch] 1 patch TOPICAL DAILY #30 patch 09/05/19 Oxycodone [Oxyir] 5 mg PO Q4H PRN PRN 5 Days #20 tablet 09/05/19 Senna/Docusate Sodium [Senokot-S] 2 tab PO BID PRN PRN #30 tab 09/05/19 The following prescriptions were given: Lidocaine [Lidoderm Patch] 1 patch TOPICAL DAILY #30 patch Transmission Status: Pending to [facility] Oxycodone [Oxyir] 5 mg PO Q4H PRN PRN 5 Days #20 tablet PRN Reason: Pain Score 4-5/10 Transmission Status: Sent to [facility] Senna/Docusate Sodium [Senokot-S] 2 tab PO BID PRN PRN #30 tab PRN Reason: Constipation Transmission Status: Pending to [facility] Orders to be completed after discharge: Chest PA and Lateral [RAD] Time Frame: 09/06/19, Facility: [facility], Location: [facility] Test Results: Test results from this visit will be discussed in further detail at your follow-up appointment, if applicable. Please Follow Up With: Margret Morales MD When: 1 week Proposed Discharge Date: 09/05/19
--- NOTE | 2019-09-05 12:01 | PCM.DC.SUM ---
Discharge Date and Diagnosis - Problem List Patient Problems: Active and Suspected Problems Pneumothorax, left (Acute) Rib fractures (Acute) Date of Admission: 09/04/19 Date of Discharge: 09/05/19 - Primary Discharge Diagnosis Acute Problems: Active Problems Pneumothorax, left (Acute) Rib fractures (Acute) - Secondary Discharge Diagnosis Chronic Problems: Chronic Problems Seizure disorder (Chronic) Hypertension (Chronic) Type 2 diabetes mellitus (Chronic) History of benign brain tumor (Chronic) Coronary artery disease (Chronic) Status post coronary artery bypass graft (Chronic) Hospital Course and Treatment Imaging Results: Clinical Impression(s) from Imaging Studies Chest X-Ray 09/04/19 01:05 IMPRESSION: Small left pneumothorax. Mild bilateral basilar atelectasis. No visualized pulmonary infiltrate. Electronically Signed: Ap Moscoso MD at 2:15 EDT , Service support , ADDENDUM: 09/04/19 0226 IMPRESSION: Small left pneumothorax. Mild bilateral basilar atelectasis. No visualized pulmonary infiltrate. N.B. : The above information has been verbally conveyed by Ap Moscoso MD to Ashley Otero RN, on 09/04/2019 02:19:02 (ET). Electronically Signed: Ap Moscoso MD at 2:15 EDT , Service support , Chest X-Ray 09/04/19 07:18 IMPRESSION: 1. Favorable change. Persistent but decreased left pneumothorax. Electronically Signed: Nimesh Knott MD ([place]) at 8:08 EDT , Service support , Chest X-Ray 09/05/19 05:55 IMPRESSION: Stable small left apical pneumothorax with a mild degree of bibasilar atelectasis. Electronically Signed: Saleem Richards, at 10:25 EDT , Service support , Summary of Care Provided: Patient is a 74-year-old gentleman transferred from [place] ER after presenting with an accidental mechanical fall. Chest x-ray obtained demonstrated multiple rib fractures and a 20% pneumothorax. To monitored bed repeat chest x-ray this a.m. demonstrated reduction in his pneumothorax down to 15% 1. Acute mechanical fall with resultant left-sided pneumothorax and multiple rib fractures -Patient admitted to a needed bed treated symptomatically with pain medication as well incentive spirometry with consultation placed to surgery. Patient was also monitored with subsequent serial x-rays which demonstrated decreasing size of her pneumothorax. Discharge home with plans for patient to [place] checks x-ray on 09/06/2019 with results sent to Dr. Morales with general surgery 2. Coronary artery disease ?Status post CABG 3. Acute kidney injury ?Resolved with rehydration 4. Diabetes mellitus type II - Controlled/uncontrolled, patient's oral hypoglycemics held. Placed on long acting insulin, Accu-Cheks a.c. and at bedtime and covered with sliding scale insulin 5. Hypertension - Blood pressure controlled, home medications continued with dose adjustment as needed 6. Seizure disorder ?Did continue with patient antiseizure medications 7. History of brain tumor -status post resection Patient Problems: Active and Suspected Problems Pneumothorax, left (Acute) Rib fractures (Acute) Objective: GENERAL: cooperative HEENT: Atraumatic; EYES; Anicteric, Normal Conjunctiva NECK; supple, normal thyroid, RESPIRATORY: Diminished to auscultation CARDIOVASCULAR: Regular S1 S2, GI: soft, normoactive bowel sounds, : No Renal angle tenderness; EXTREMITIES: No edema, no clubbing, MUSCULOSKELETAL: no muscle waisting NEURO: Awake; no lateralizing signs. SKIN: No Rash PSYCH; Flat affect - Physical Exam Vitals/I&O's: Vital Signs Temp Pulse Resp BP Pulse Ox 98.0 F 88 16 150/64 H 98 09/05/19 08:05 09/05/19 08:05 09/05/19 08:05 09/05/19 08:05 09/05/19 08:05 Oxygen Delivery Method Room Air Weight: 79.8 kg Body Mass Index (BMI) 29.2 Intake and Output for Last 24 Hours 09/03/19 09/04/19 09/05/19 23:59 23:59 23:59 Intake Total 1840 / 1840 Output Total 2100 / 2099 Balance -260 / -260 Laboratory Results 09/04/19 17:08: POC Glucose 89 09/04/19 21:24: POC Glucose 90 09/05/19 06:44: POC Glucose 137 H 09/05/19 07:45: WBC 6.1, RBC 4.29 L, Hgb 13.3, Hct 40.6, MCV 94.6 H, MCH 31.0, MCHC 32.8, RDW Std Deviation 44.8 H, RDW Coeff of Rosa Maria 13.1, Plt Count 242, MPV 8.9 09/05/19 07:45: Sodium 140, Potassium 3.9, Chloride 104, Carbon Dioxide 26.0, Anion Gap 10, BUN 21 H, Creatinine 1.06, Estim Creat Clear Calc 54.80, Est GFR (MDRD) Af Amer 88, Est GFR (MDRD) Non-Af 73, BUN/Creatinine Ratio 19.8, Glucose 141 H, Calcium 9.3, Magnesium 1.8 Current Medications Acetaminophen (Tylenol) 650 mg PO Q6H PRN PRN PRN Reason: Pain Score 1-10/Temp > 100.7 F Aspirin (Aspirin) 325 mg PO DAILY@0800 [facility] Last Admin: 09/05/19 08:05 Dose: 325 mg Documented by: Atenolol (Tenormin (Beta Gómez)) 100 mg PO DAILY [facility] Last Admin: 09/05/19 08:07 Dose: 100 mg Documented by: Atorvastatin Calcium (Lipitor) 20 mg PO QHS [facility] Last Admin: 09/04/19 21:18 Dose: 20 mg Documented by: Cilostazol (Pletal) 100 mg PO BIDAC [facility] Last Admin: 09/05/19 06:40 Dose: 100 mg Documented by: Cyanocobalamin (Vitamin B12) 1,000 mcg PO DAILYCM [facility] Last Admin: 09/05/19 08:06 Dose: 1,000 mcg Documented by: Dextrose (D50w Syringe) 0 gm IV X1 PRN; Protocol PRN Reason: Hypoglycemia Doxazosin Mesylate (Cardura) 4 mg PO BID [facility] Last Admin: 09/05/19 08:07 Dose: 4 mg Documented by: Glucagon () 1 mg IM .X1 PRN PRN Reason: Hypoglycemia Hydralazine HCl (Apresoline Iv) 10 mg IV Q8H PRN PRN PRN Reason: for SBP>160 Hydrochlorothiazide (Hctz) 50 mg PO DAILY [facility] Last Admin: 09/05/19 08:07 Dose: 50 mg Documented by: Sodium Chloride () 250 mls @ 15 mls/hr IV .[id number] PRN PRN Reason: Saline Flush Sodium Chloride () 250 mls @ 15 mls/hr IV .[id number] PRN PRN Reason: Additional IVPB Infusion Lidocaine (Lidoderm Patch) 1 patch TOPICAL DAILY [facility]; Protocol Last Admin: 09/05/19 08:08 Dose: 1 patch Documented by: Lisinopril (Zestril) 40 mg PO BID [facility] Last Admin: 09/05/19 08:08 Dose: 40 mg Documented by: [facility]) [facility] Last Admin: 09/05/19 08:06 Dose: 1,000 mg Documented by: Morphine Sulfate () 2 mg IV Q3H PRN PRN PRN Reason: Pain Score 6-10/10 Naproxen (Naprosyn) 500 mg PO BID PRN PRN Reason: Pain Score 1-10/10 Nutritional Formula (Lactose Free) (Glucerna Shake) 120 ml PO TIDCM [facility] Last Admin: 09/05/19 08:05 Dose: Not Given Documented by: Ondansetron HCl (Zofran) 4 mg IV Q8H PRN PRN PRN Reason: NAUSEA/VOMITING Oxycodone HCl (Oxyir) 5 mg PO Q4H PRN PRN PRN Reason: Pain Score 4-5/10 Last Admin: 09/05/19 08:04 Dose: 5 mg Documented by: Phenytoin [facility]in) [facility] Last Admin: 09/05/19 08:06 Dose: 100 mg Documented by: Senna/Docusate Sodium (Senokot-S, Joslyn-Colace) 2 tablet PO BID PRN PRN PRN Reason: Constipation Sodium Chloride () 10 - 40 ml IV UD PRN PRN Reason: SALINE FLUSH Last Admin: 09/04/19 01:42 Dose: 10 ml Documented by: Zolpidem Tartrate (Ambien (Generic)) 5 mg PO QHS PRN PRN PRN Reason: INSOMNIA Last Admin: 06/01/20 21:21 Dose: 5 mg Documented by: Discharge Diet: Low fat/ Low Cholesterol Discharge Activity: Return to Normal Activity Home Medications: Medications to take at Discharge Acetaminophen 650 mg PO Q4H PRN 09/04/19 Aspirin 325 mg PO DAILY@0800 09/04/19 Atenolol [Tenormin (beta gómez)] 100 mg PO DAILY 09/04/19 Atorvastatin Calcium 20 mg PO QHS 09/04/19 Cilostazol 100 mg PO BID 09/04/19 Cyanocobalamin (Vitamin B-12) [Vitamin B-12] 1,000 mcg PO DAILY 09/04/19 Hydrochlorothiazide 50 mg PO DAILY 09/04/19 Lisinopril 40 mg PO BID 09/04/19 Metformin HCl 1,000 mg PO BIDCM 09/04/19 Naproxen 500 mg PO BID PRN 09/04/19 Phenytoin Na [Dilantin] 100 mg PO BID 09/04/19 Terazosin HCl 5 mg PO BID 09/04/19 Lidocaine [Lidoderm Patch] 1 patch TOPICAL DAILY #30 patch 09/05/19 Oxycodone [Oxyir] 5 mg PO Q4H PRN PRN 5 Days #20 tablet 09/05/19 Senna/Docusate Sodium [Senokot-S] 2 tab PO BID PRN PRN #30 tab 09/05/19 Following Prescrptions Were Given to Patient: Lidocaine [Lidoderm Patch] 1 patch TOPICAL DAILY #30 patch Transmission Status: Pending to [facility] Oxycodone [Oxyir] 5 mg PO Q4H PRN PRN 5 Days #20 tablet PRN Reason: Pain Score 4-5/10 Transmission Status: Sent to [facility] Senna/Docusate Sodium [Senokot-S] 2 tab PO BID PRN PRN #30 tab PRN Reason: Constipation Transmission Status: Pending to [facility] Other Amb Orders: Chest PA and Lateral [RAD] Time Frame: 09/06/19, Facility: [facility], Location: [facility] Please Follow Up With: Margret Morales MD When: 1 week Disposition: Home Minutes spent on discharge:: 35 Patient Condition:: Stable Medical Necessity - Tobacco Use Smoking Status: Former smoker Tobacco Use: Non-smoker Meaningful Use Info Meaningful Use Diagnoses (Choose all that apply): None applicable Inpatient E&M: [id number] Disch Hosp
== END 2019-09-05 12:51 | disposition home or self-care (01) | DRG 200 ==
PROVIDERS: Admitting Provider Hospitalist; Visit Provider Internal Medicine
DX: S27.0XXA Traumatic pneumothorax, initial encounter (principal); S22.42XA Multiple fractures of ribs, left side, initial encounter for closed fracture; N17.9 Acute kidney failure, unspecified; I10 Essential (primary) hypertension; I25.10 Atherosclerotic heart disease of native coronary artery without angina pectoris; E11.9 Type 2 diabetes mellitus without complications; G40.909 Epilepsy, unspecified, not intractable, without status epilepticus; H91.90 Unspecified hearing loss, unspecified ear; H35.30 Unspecified macular degeneration; H54.40 Blindness, one eye, unspecified eye; W17.89XA Other fall from one level to another, initial encounter; Z86.011 Personal history of benign neoplasm of the brain; Z87.891 Personal history of nicotine dependence; Z95.1 Presence of aortocoronary bypass graft; Z79.899 Other long term (current) drug therapy; Z79.84 Long term (current) use of oral hypoglycemic drugs
CPT/HCPCS: 36415; 71046; 80048; 82962; 83735; 84484; 85025; 85027; 85610; 93005; 97162; 97166; 97530; 97802; 99251; J7030; A4216; G0463

== ENCOUNTER → 2019-09-06 07:02 | Outpatient (CLI) | payer OTHER, SELFPAY ==
[2019-09-04 00:32] VITALS: BMI 29.2
--- NOTE | 2019-09-06 07:09 | RAD_ITS ---
STUDY: X-RAY CHEST REASON FOR EXAM: Male, 74 years old. small stable left PTX TECHNIQUE: 2 views COMPARISON: Prior chest radiograph of September 05, 2019 FINDINGS: Persistent small left pneumothorax which is most clearly visualized in the axillary part of the left upper lobe and measures 9 mm from the visceral to the parietal pleura not substantially changed from prior exam. Persistent mild bibasilar atelectasis unchanged from prior exam. Normal size heart. Status post prior midline sternotomy. Normal visualized pulmonary arteries. There is atherosclerotic calcification of the aortic arch with tortuosity. There is no demonstrated abnormality of the visualized soft tissue structures of the upper abdomen. RAD/Chest PA and Lateral IMPRESSION: Persistent small left pneumothorax unchanged from prior exam. Continued mild bibasilar atelectatic changes. Electronically Signed: Beatriz Merino MD at 17:02 EDT , Service support ,
== END ==
PROVIDERS: Referring Provider Surgery; Visit Provider Surgery
DX: J93.9 Pneumothorax, unspecified (principal)
CPT/HCPCS: 71046